=== PATIENT | male | born 1950 | race Two or more races ===

== ENCOUNTER 2017-07-28 17:26 | Inpatient (IN) | payer OTHER, MEDICAID ==
[~2017-07-28] VITALS: Ht 177.8 cm; Wt 97.5 kg
--- NOTE | 2017-07-28 17:54 | NUR ---
PT IS IN ROOM # 1B. DR BERMUDEZ EVALUATED THE PT. PT WAS MEDICALY CLEARED BY DR BERMUDEZ. TELLY CRISIS MINE ANALYST WAS CALLED TO SEE THE PT.
[2017-07-28] MEDS ORDERED: LOPE2CAP PO (18:46)
[2017-07-28] MEDS ORDERED: POLY17PO4 PO (18:46)
[2017-07-28] MEDS ORDERED: ASPI-605 PO (18:46)
[2017-07-28] MEDS ORDERED: FENO160T PO (18:46)
[2017-07-28] MEDS ORDERED: OLME20TA21 PO (18:46)
[2017-07-28] MEDS ORDERED: ONDA4VIA30 IV (18:46)
[2017-07-28] MEDS ORDERED: FAMO-132 PO (18:46)
[2017-07-28] MEDS ORDERED: QUET200T PO (18:46)
[2017-07-28] MEDS ORDERED: TRAM50TA2 PO (18:46)
[2017-07-28] MEDS ORDERED: ACET325T53 PO (18:46)
[2017-07-28] MEDS ORDERED: ATOR80TA PO (18:46)
[2017-07-28] MEDS ORDERED: METF10002 PO (18:46)
[2017-07-28] MEDS ORDERED: BISA5TAB10 PO (18:46)
[2017-07-28] MEDS ORDERED: BUPR300T54 PO (18:46)
[2017-07-28] MEDS ORDERED: BLOO-140 IN (18:46)
[2017-07-28] MEDS ORDERED: HYDR2VIA3 IV (18:46)
[2017-07-28] MEDS ORDERED: ENOX40DI9 SQ (18:46)
[2017-07-28] MEDS ORDERED: OMEP40CA37 PO (18:46)
[2017-07-28] MEDS ORDERED: DEXT15LI44 PO (18:46)
[2017-07-28] MEDS ORDERED: HYDR-3976 PO (18:46)
[2017-07-28] MEDS ORDERED: MORP4VIA IV (18:46)
[2017-07-28] MEDS ORDERED: INSU100C SQ (18:46)
[2017-07-28] MEDS ORDERED: METO-302 PO (18:46)
[2017-07-28] MEDS ORDERED: SERT50TA12 PO (18:46)
[2017-07-28] MEDS ORDERED: LACT10SO PO (18:46)
[2017-07-28] MEDS ORDERED: SENN1TAB5 PO (18:46)
[2017-07-28] MEDS ORDERED: GLUC1VIA4 IJ (18:46)
[2017-07-28] MEDS ORDERED: LORA1TAB PO (18:46)
--- NOTE | 2017-07-28 19:19 | NUR ---
REPORT WAS GIVEN TO PUT IN BEAT ADJUSTERANALYSIS MANAGER.
--- NOTE | 2017-07-28 19:21 | NUR ---
Received report from SHIREEN Horn. Assumed care of pt at this time. Pt ambulated to and from br with steady gait. SHIREEN Emery from crisis team at bedside to evaluate pt.
--- NOTE | 2017-07-28 19:34 | NUR ---
Pt placed on 5150 for danger to self per Yuly, RN crisis team. Pt requesting ativan, Dr. Babin notified.
[2017-07-28] MEDS ORDERED: LORAZEPAM 0.5 MG TABLET PO ONE (19:45)
[2017-07-28] MEDS ORDERED: LORAZEPAM 1 MG TABLET ONE (19:49)
[2017-07-28] MEDS ORDERED: HYDROMORPHONE 1 MG/1 ML DISP.SYRIN IV ONE (20:00)
[2017-07-28] MEDS ORDERED: ONDANSETRON IV *ER 4 MG/2 ML VIAL IV ONE (20:15)
[2017-07-28] MEDS ORDERED: ONDANSETRON 4 MG/2 ML VIAL ONE (20:23)
[2017-07-28] MEDS ORDERED: HYDROMORPHONE 2 MG/1 ML DISP.SYRIN ONE (20:25)
--- NOTE | 2017-07-28 20:40 | NUR ---
Pt to be admitted to MHU. Report called to SHIREEN Jenkins. Pt sts pain improved. Preparing to transfer pt to the floor.
[2017-07-28] MEDS ORDERED: MAG HYDROX/AL HYDROX/SIMETH 30 ML LIQUID UDC PO PRN ×2 (21:30→23:15)
[2017-07-28] MEDS ORDERED: ACETAMINOPHEN 325 MG TABLET PO PRN ×2 (21:30→23:15)
[2017-07-28] MEDS ORDERED: LORAZEPAM 1 MG TABLET PO PRN (21:30)
[2017-07-28] MEDS ORDERED: TEMAZEPAM 7.5 MG CAPSULE PO PRN ×2 (21:30→23:15)
[2017-07-28] MEDS ORDERED: MAGNESIUM HYDROXIDE 30 ML LIQUID UDC PO PRN ×2 (21:30→23:15)
[2017-07-28 23:01] LABS: *BILIRUBIN,URIN NEGATIVE (NEGATIVE); *BLOOD, URINE Trace-intact (NEGATIVE); *CLARITY,URINE CLEAR (CLEAR); *COLOR,URINE YELLOW (YELLOW); *KETONES,URINE NEGATIVE (NEGATIVE); *PROTEIN,URINE NEGATIVE (NEGATIVE); *UROBILINOGEN,URINE 0.2 E.U./dl (NORMAL); LEUKOCYTE ESTERASE ,URINE NEGATIVE (NEGATIVE); NITRITE, URINE NEGATIVE (NEGATIVE); UGLUCOSE NEGATIVE (NEGATIVE)
[2017-07-28 23:15] LABS: BACTERIA,URINE NONE SEEN /HPF (NONE SEEN); RBC,URINE 0-3 /HPF (0-3); SQUAMOUS EPITHELIAL CELL,UR NONE SEEN /HPF (NONE SEEN); WBC,URINE NONE SEEN /HPF (0-3)
[2017-07-28] MEDS ORDERED: BISACODYL 5 MG TABLET.DR PO PRN (23:45)
[2017-07-28] MEDS ORDERED: LOPERAMIDE HCL 2 MG CAPSULE PO PRN (23:45)
[2017-07-29] MEDS: LORAZEPAM 0.5 MG TABLET PO PRN ×2 (06:32→16:05)
[2017-07-29] MEDS ORDERED: LORAZEPAM 0.5 MG TABLET ONE (06:45)
[2017-07-29 07:03] LABS: BASOPHILS % (AUTO) 1.1 % (0.0-2.0); EOSINOPHILS # (AUTO) 0.1 K/uL (0.0-0.7); EOSINOPHILS % (AUTO) 1.5 % (0.0-7.0); HEMATOCRIT 31.6 % (40-50); HEMOGLOBIN 10.1 G/DL (14.0-18.0); LYMPHOCYTES # (AUTO) 0.9 K/UL (0.8-4.8); LYMPHOCYTES % (AUTO) 22.9 % (20.5-51.5); MEAN CORPUSCULAR HGB CONC 32 g/dL (32.0-37.0); MEAN CORPUSCULAR VOLUME 84.3 FL (82.0-92.0); MONOCYTES # (AUTO) 0.3 K/UL (0.1-1.30); MONOCYTES % (AUTO) 7.1 % (0.0-11.0); NEUTROPHILS # (AUTO) 2.8 K/UL (1.8-8.9); NEUTROPHILS % (AUTO) 67.4 % (38.5-71.5); PLATELET COUNT (AUTO) 159 K/UL (150-450); RED BLOOD CELL COUNT(AUTO) 3.75 MIL/UL (4.7-6.1); WHITE BLOOD COUNT (AUTO) 4.1 K/UL (4.0-11.2)
[2017-07-29 07:37] LABS: BILIRUBIN,TOTAL 0.4 mg/dL (0.2-1.0); CREATININE 0.8 mg/dL (0.6-1.3); MAGNESIUM 1.8 mg/dL (1.8-2.4); POTASSIUM 3.8 mmol/L (3.5-5.1); TOTAL PROTEIN, SERUM 6.6 g/dL (6.4-8.2)
[2017-07-29] MEDS: MIRALAX 17 GM POWD.PACK PO SCH (08:27)
[2017-07-29] MEDS: ASPIRIN EC 81 MG TABLET.DR PO SCH (08:27)
[2017-07-29] MEDS: FAMOTIDINE 20 MG TABLET PO SCH ×2 (08:27→17:13)
[2017-07-29] MEDS: METFORMIN HCL 500 MG TABLET PO SCH ×2 (08:27→17:13)
[2017-07-29] MEDS: METOPROLOL SUCCINATE XL 25 MG TAB.SR.24H PO SCH (08:27)
[2017-07-29] MEDS: HYDROCODONE/APAP 7.5-325MG TABLET PO PRN ×2 (08:33→16:05)
[2017-07-29 09:01] LABS: THYROID STIMULATING HORMONE 1.697 mIU/mL (0.358-3.740)
[2017-07-29] MEDS: SENNOSIDES/DOCUSATE SODIUM TABLET PO SCH ×2 (10:30→17:13)
[2017-07-29 10:42] VITALS: BP 136/69
[2017-07-29] MEDS ORDERED: DEXTROSE 50% 50 ML DISP.SYRIN IV PRN (10:45)
[2017-07-29] MEDS ORDERED: MISCELLANEOUS MED PO SCH (10:45)
[2017-07-29 11:18] LABS: IRON, SERUM 32 ug/dL (50-175)
--- NOTE | 2017-07-29 11:55 | NUR ---
Initial Discharge Instructions: The patient resides at [facility] [[address] [place] [address]] independently. The patient stated that he would like to return to his halfway upon discharge. SW will speak with patient, family, and MD regarding most appropriate discharge plans. SS will form a safe and proper discharge.
[2017-07-29] MEDS: LOSARTAN POTASSIUM 50 MG TABLET PO SCH (12:37)
[2017-07-29] MEDS: BLOOD SUGAR DIAGNOSTIC 1 EACH STRIP VI SCH ×4 (12:40→20:42)
[2017-07-29] MEDS: INSULIN REGULAR, HUMAN 300 UNIT/3 ML VIAL SQ PRN (12:43)
--- NOTE | 2017-07-29 12:48 | NUR ---
pt blood sugar 546 at this time. Asymptomatic. pt is AOX4. c/o 09/10 abd pain at this time as well. spoke to Regine Leija [employer] received orders for additional 2 units of reg insulin and to recheck in 15 minutes. no new orders yet for additional pain medications. Pt currently takes [place].
[2017-07-29] MEDS ORDERED: INSULIN REGULAR, HUMAN 300 UNIT/3 ML VIAL SQ ONE (13:00)
[2017-07-29] MEDS: TRAMADOL HCL 50 MG TABLET PO PRN (13:01)
--- NOTE | 2017-07-29 13:32 | NUR ---
ADMINISTERED TRAMADOL FOR ABDOMINAL PAIN. RECHECKED PT'S BLOOD GLUCOSE, 196. REMAINS ASYMPTOMATIC. WILL CONTINUE TO MONITOR.
--- NOTE | 2017-07-29 13:49 | NUR ---
UR Note: AGUILAR faxed patient's most recent/available clinicals to KEIRA Rush at [facility] [ ]. Awaiting authorization number.
[2017-07-29 16:59] VITALS: BP 133/65
[2017-07-29 20:38] VITALS: BP 155/75
[2017-07-29] MEDS: QUETIAPINE FUMARATE 200 MG TABLET PO SCH (20:42)
[2017-07-29] MEDS: ATORVASTATIN 40 MG TABLET PO SCH (20:42)
[2017-07-29] MEDS: LORAZEPAM 1 MG TABLET PO PRN (22:02)
[2017-07-30] MEDS: LORAZEPAM 1 MG TABLET PO PRN ×4 (02:08→20:25)
[2017-07-30] MEDS: BLOOD SUGAR DIAGNOSTIC 1 EACH STRIP VI SCH ×4 (06:37→20:21)
[2017-07-30 07:30] VITALS: BP 127/80
[2017-07-30] MEDS ORDERED: IOHEXOL 300MG/ML 100 ML INFUS..BTL ONE (09:06)
[2017-07-30] MEDS ORDERED: IV NORMAL SALINE 250 ML IV ONE (09:06)
[2017-07-30] MEDS ORDERED: BARIUM SULFATE 450 ML ORAL.SUSP ONE (09:06)
[2017-07-30] MEDS: HYDROCODONE/APAP 7.5-325MG TABLET PO PRN (10:47)
--- NOTE | 2017-07-30 11:59 | NUR ---
[employer] Consultant Patient requested to see a it operations specialist. SW contacted [facility] and spoke with Sara who arranged for Pastor Father Guevara to come meet with the patient today at 1:45 pm.
--- NOTE | 2017-07-30 12:02 | NUR ---
UR Note: AGUILAR faxed patient's most recent/available clinicals to KEIRA Rush at [facility] [ ]. Tracking #[id number]
[2017-07-30] MEDS: FERROUS SULFATE 325 MG TABEC PO SCH (12:24)
[2017-07-30] MEDS: SERTRALINE HCL 100 MG TABLET PO SCH (12:25)
[2017-07-30] MEDS: FAMOTIDINE 20 MG TABLET PO SCH ×2 (12:26→17:50)
[2017-07-30] MEDS: buPROPion XL 150 MG TAB.SR.24H PO SCH (12:26)
[2017-07-30] MEDS: ASPIRIN EC 81 MG TABLET.DR PO SCH (12:26)
[2017-07-30] MEDS: INSULIN REGULAR, HUMAN 300 UNIT/3 ML VIAL SQ PRN (12:28)
[2017-07-30] MEDS: SENNOSIDES/DOCUSATE SODIUM TABLET PO SCH ×2 (12:32→17:50)
[2017-07-30] MEDS: MIRALAX 17 GM POWD.PACK PO SCH (12:33)
[2017-07-30] MEDS: METOPROLOL SUCCINATE XL 25 MG TAB.SR.24H PO SCH (12:33)
[2017-07-30] MEDS: LOSARTAN POTASSIUM 50 MG TABLET PO SCH (12:34)
--- NOTE | 2017-07-30 12:40 | NUR ---
All patients morning medications given late, was NPO post Midnight for a diagnostic procedure, CT of abdomen and pelvis with / with out contrast.
[2017-07-30] MEDS: TRAMADOL HCL 50 MG TABLET PO PRN (14:28)
[2017-07-30 15:09] VITALS: BP 126/65
[2017-07-30 20:00] VITALS: BP 147/67
[2017-07-30] MEDS: ATORVASTATIN 40 MG TABLET PO SCH (20:25)
[2017-07-30] MEDS: QUETIAPINE FUMARATE 200 MG TABLET PO SCH (21:43)
[2017-07-31] MEDS: LORAZEPAM 1 MG TABLET PO PRN ×2 (02:55→07:41)
[2017-07-31] MEDS: HYDROCODONE/APAP 7.5-325MG TABLET PO PRN (06:33)
[2017-07-31] MEDS: BLOOD SUGAR DIAGNOSTIC 1 EACH STRIP VI SCH ×2 (06:36→11:48)
[2017-07-31 07:15] LABS: THYROID STIMULATING HORMONE 3.685 mIU/mL (0.358-3.740)
[2017-07-31 07:30] VITALS: BP 134/65
[2017-07-31] MEDS: ASPIRIN EC 81 MG TABLET.DR PO SCH (08:48)
[2017-07-31] MEDS: SERTRALINE HCL 100 MG TABLET PO SCH (08:48)
[2017-07-31] MEDS: FERROUS SULFATE 325 MG TABEC PO SCH (08:48)
[2017-07-31] MEDS: buPROPion XL 150 MG TAB.SR.24H PO SCH (08:48)
[2017-07-31] MEDS: LOSARTAN POTASSIUM 50 MG TABLET PO SCH (08:48)
[2017-07-31 08:49] VITALS: BP 134/65
[2017-07-31] MEDS: SENNOSIDES/DOCUSATE SODIUM TABLET PO SCH (08:49)
[2017-07-31] MEDS: FAMOTIDINE 20 MG TABLET PO SCH (08:49)
[2017-07-31] MEDS: MIRALAX 17 GM POWD.PACK PO SCH (08:49)
[2017-07-31] MEDS: METOPROLOL SUCCINATE XL 25 MG TAB.SR.24H PO SCH (08:49)
--- NOTE | 2017-07-31 08:57 | NUR ---
DC Note: The patient will be discharged today back home to [facility] [[address] [place] [address]] via transportation provided by [email or web address]. AGUILAR spoke with [place] and later Aleah with [employer] whom stated that a taxi will be provided for the patient at 2:00 pm today BY [employer] , confirmation #[id number]. AGUILAR spoke with the patients sister, Nupur and she is aware and agreeable with the discharge plan. AGUILAR spoke with the patient and he is also aware and agreeable with the discharge plan. The patient will follow-up with his rivet spinner Dr. Valentin Andino . AGUILAR spoke with [facility] top case assembler, Trinidad who has arranged for outpatient appointments for the patient. The patient has an outpatient therapy appointment with Emmie Quiroz on 08/02/17 at 10:30 am at [[address] [place] [address]; ]. The patient has a psychiatry appointment with Dr. Ashleigh Browning on 08/29/17 at 8:45 am at the same location.
[2017-07-31] MEDS: INSULIN REGULAR, HUMAN 300 UNIT/3 ML VIAL SQ PRN (12:31)
--- NOTE | 2017-07-31 14:20 | NUR ---
1400 DISCHARGED INTRUCTIONS GIVEN TO THE PATIENT REGARDING MEDICATIONS TO CONTINUE UPON HOSPITAL DISCHARGE, INSTRUCTED TO CALL HIS PSYCHIATRIST AND ABSORPTION PLANT OPERATOR FOR FOLLOW UP APPOINTMENT, PATIENT VERBALIZED UNDERSTANDING. pRESCRIPTION FOR PSYCHIATRY GIVEN AND FOR HIS MEDICAL CONDITION, PATIENT STATED THAT HE HAS A 1 MONTH SUPPLY AT HOME. PATIENT DENIES SI/ HI. NO HALLUCINATION/NO DELUSIONS NOTED. 1405 PATIENT PICKED UP BY [employer] THAT IS ARRANGED BY HIS MEDICAL INSUARANCE. WENT HOME MENTALLY AND MEDICALLY STABLE.
[2017-08-01 09:08] LABS: *IMMUNOGLOBULIN G, SERUM 821 mg/dL (700-1600); IMMUNOGLOBULIN A, SERUM 217 mg/dL (61-437); IMMUNOGLOBULIN M, SERUM 43 mg/dL (20-172)
[2017-08-01 10:08] LABS: A/G RATIO 1.4 (0.7-1.7); ALBUMIN 3.6 g/dL (2.9-4.4); ALPHA-1-GLOBULIN 0.2 g/dL (0.0-0.4); ALPHA-2-GLOBULIN 0.7 g/dL (0.4-1.0); BETA GLOBULIN 0.9 g/dL (0.7-1.3); GAMMA GLOBULIN 0.8 g/dL (0.4-1.8); GLOBULIN, TOTAL 2.6 g/dL (2.2-3.9); M-SPIKE Not Observed g/dL (Not Observed)
--- NOTE | 2017-08-01 10:10 | NUR ---
DC Clinicals: AGUILAR faxed patient's DC clinicals to KEIRA Rush at [facility] [ ]. Tracking #[id number]
[2017-08-01] MEDS ORDERED: METFORMIN HCL 500 MG TABLET PO SCH (18:00)
== END 2017-07-31 14:05 | disposition home or self-care (01) | DRG 885 ==
LOC: ER 17:26 → GPS 21:08
PROVIDERS: ADMIT Psychiatry & Neurology Psychiatry; ATTEND Internal Medicine
DX: F31.9 Bipolar disorder, unspecified (principal); I11.0 Hypertensive heart disease with heart failure; E11.65 Type 2 diabetes mellitus with hyperglycemia; E44.0 Moderate protein-calorie malnutrition; C25.9 Malignant neoplasm of pancreas, unspecified; K85.90 Acute pancreatitis without necrosis or infection, unspecified; E67.8 Other specified hyperalimentation; I50.9 Heart failure, unspecified; D50.9 Iron deficiency anemia, unspecified; F12.20 Cannabis dependence, uncomplicated; Z79.4 Long term (current) use of insulin; Z79.84 Long term (current) use of oral hypoglycemic drugs; I25.10 Atherosclerotic heart disease of native coronary artery without angina pectoris; H40.9 Unspecified glaucoma; Z68.30 Body mass index [BMI] 30.0-30.9, adult; Z86.14 Personal history of Methicillin resistant Staphylococcus aureus infection; G47.9 Sleep disorder, unspecified; Z86.59 Personal history of other mental and behavioral disorders
CPT/HCPCS: 36415; 70030-TC; 82746; 82784; 83550; 83690; 83735; 84100; 84155; 84165; 84443; 85025; 85610; 86301; 86334; 87086; A4663; J1170; J1815; J2405; J7050; Q9951; Q9967